=== PATIENT | female | born 1985 | race Caucasian/White ===

== ENCOUNTER 2025-06-16 13:33 | Emergency (ER) | payer SELFPAY ==
[~2025-06-16] VITALS: Ht 165.1 cm; Wt 116.3 kg
[2025-06-16] MEDS ORDERED: KETOROLAC TROMETHAMINE 15 MG/ML VIAL IV ONE (14:00)
[2025-06-16] MEDS ORDERED: COZAAR100 MG PO (14:05)
[2025-06-16] MEDS ORDERED: KAPSPARGO SPRIN50 MG PO (14:05)
[2025-06-16] MEDS ORDERED: WELLBUTRIN XL150 MG PO (14:06)
[2025-06-16 14:31] LABS: BLOOD/HGB, URINE NEGATIVE (Negative); KETONE, URINE TRACE (Negative); LEUK ESTERASE, URINE NEGATIVE (negative); NITRITE, URINE NEGATIVE (negative)
[2025-06-16 14:32] LABS: BASOPHILS 0.3 % (0.1-1.2); EOSINOPHILS 1.3 % (0.7-5.8); LYMPHOCYTES 31.3 % (19.3-51.7); MCH 29.8 PG (25.6-32.2); MCHC 33.2 g/dL (32.2-35.5); MCV 89.8 fL (79.4-94.8); MONOCYTES 7.4 % (4.7-12.5); NEUTROPHILS 59.5 % (34.0-71.1); RBC 4.13 M/uL (3.93-5.22)
[2025-06-16 14:49] LABS: ALT (SGPT) 37.0 U/L (14-59); AST (SGOT) 15.0 U/L (15-37); GLOMERULAR FILTRATION RATE,EST 113.0 mL/min (>60); PROTEIN, TOTAL 7.3 g/dL (6.4-8.2); UREA NITROGEN 11.0 mg/dL (7-18)
[2025-06-16] MEDS ORDERED: METRONIDAZOLE500 MG PO (16:12)
[2025-06-16] MEDS ORDERED: CIPRO500 MG PO (16:12)
[2025-06-16] MEDS ORDERED: CIPROFLOXACIN 500 MG TAB PO ONE (16:15)
[2025-06-16 16:49] VITALS: BP 111/73
--- NOTE | 2025-06-17 17:50 | EKG ---
[facility] [address] [facility] [address] [facility] [place], [place] [address] Signed Normal sinus rhythm Possible Left atrial enlargement Low voltage QRS Cannot rule out Anterior infarct , age undetermined Abnormal ECG No previous ECGs available Confirmed by Ignacia Perry DO ([id number]) on 06/17/2025 5:50:34 PM Electronically Signed By: IGNACIA PERRY DO 06/17/25 1750 PATIENT NAME: TAI HENSON Electrocardiogram DATE OF : 89 PHYSICIAN: IGNACIA PERRY DO REPORT #: [id number] REPORT IS CONFIDENTIAL AND NOT TO BE RELEASED WITHOUT AUTHORIZATION
== END 2025-06-16 16:50 | disposition home or self-care (01) ==
LOC: ED 13:33
PROVIDERS: Emergency Medicine
DX: K57.32 Diverticulitis of large intestine without perforation or abscess without bleeding (principal); Z79.899 Other long term (current) drug therapy; Z88.0 Allergy status to penicillin; Z88.5 Allergy status to narcotic agent
CPT/HCPCS: 36415; 74177; 80053; 81003; 84703; 85025; 93005; 93010; 96374; 96375; 99284-25; J1885; J2405; Q9967